=== PATIENT | female | born 1960 | race African-American/Black ===

== ENCOUNTER 2017-03-11 03:36 | Emergency (ER) | payer SELFPAY ==
[~2017-03-11] VITALS: Ht 185.4 cm; Wt 72.2 kg
[~2017-03-11 03:36] MED LIST: ACCURETI1 PO; ALENDRONATE70 MG OR; AMLODIPINE BESYL5 MG PO; AMOXICILLIN500 MG OR; ASACOL400 MG OR; ASACOL400 MG PO; ASPIRIN325 MG PO; BENAZEPRIL10 MG OR; CIPRO500 MG PO; CLARITIN10 M1 OR; COZAAR25 MG PO; CYMBALTA30 MG PO; CYMBALTA60 MG PO; DARVOCET N-100100 - OR; DARVOCET-N 100100 MG OR; DEPO-MEDROL80 MG/ML IM; DILAUDID2 MG PO; DIPENTUM250 MG OR; FLEXERIL OR; FLEXERIL10 MG PO; FOSAMAX PLUS; HYDROCHLORO25 MG/TAB PO; IMDUR30 MG OR; LEVAQUIN750 MG PO; LIALDA1.2 GM PO; LIPITOR10 MG PO; LIPITOR20 MG PO; LIPITOR40 MG OR; LISINOPRIL20 M1 OR; LORTAB5 PO; METHOCARBAMOL500 MG PO; METO50TA52 PO; METOPROLOL50 MG OR; METRONIDAZOL0.75 % VA; METRONIDAZOLE500 MG PO; MOTRIN800 MG OR; NEXIUM40 M1 PO; PLAVIX75 MG OR; PLAVIX75 MG PO; PREDNISONE20 MG PO; PRILOSEC40 MG PO; PROCARDIA XL30 MG OR; PROCARDIA XL30 MG PO; PROVENTIL0.083 % IN; ROBAXIN-750750 MG PO; SIMVASTATIN20 MG OR; SINGULAIR PO; TORADOL PO; TRAMADL/APAP OR; TRAMADOL HCL50 MG OR; TYLENOL # 31 TA1 PO; ULTRAM50 M1 PO; ZITHROMAX250 MG PO; ZOLOFT25 MG PO
[2017-03-11] MEDS ORDERED: PERCOCET 5/325M1 TAB PO (05:30)
[2017-03-11 05:41] VITALS: BP 148/88
== END 2017-03-11 05:48 | disposition home or self-care (01) | DRG 156 ==
LOC: ED 03:36
DX: S02.2XXA Fracture of nasal bones, initial encounter for closed fracture (principal); I10 Essential (primary) hypertension; M81.0 Age-related osteoporosis without current pathological fracture; M06.9 Rheumatoid arthritis, unspecified; J44.9 Chronic obstructive pulmonary disease, unspecified; F32.9 Major depressive disorder, single episode, unspecified; F17.210 Nicotine dependence, cigarettes, uncomplicated; Y04.0XXA Assault by unarmed brawl or fight, initial encounter

== ENCOUNTER 2018-07-31 11:43 | Observation (INO) | payer SELFPAY ==
[2018-07-31] VITALS (16 sets, daily range): BP systolic 154–177; BP diastolic 93–123
[~2018-07-31] VITALS: Ht 188 cm; Wt 71.9 kg
[~2018-07-31 11:43] MED LIST changes: +PERCOCET 5/325M1 TAB PO
--- NOTE | 2018-07-31 11:45 | NUR ---
TO [facility] ROOM VIA W/C
--- NOTE | 2018-07-31 12:21 | NUR ---
PT WITH IV ESTABLISHED, BLOOD DRAWN, NO ACUTE DISTRESS NOTED.
[2018-07-31 12:31] LABS: HEMATOCRIT 39.3 % (37.0-47.0); IMMATURE GRANULOCYTES 0.3 % (0.0-5.0); MEAN CELL VOLUME 92.9 fL CALC (80.0-100.0); MEAN CORPUSCULAR HGB 30.7 pG CALC (26.0-32.0); MEAN CORPUSCULAR HGB CONC 33.1 g/L CALC (32.0-36.0); NEUT# 3.25 thou/uL (2.00-7.15); RED BLOOD COUNT 4.23 mill/uL (4.20-5.60); RED CELL DISTRI WIDTH 14.7 % (11.5-15.5)
[2018-07-31 12:37] LABS: ALBUMIN 3.5 g/dL (3.2-5.0); ALKALINE PHOSPHATASE 80 u/l (38-126); ANION GAP 13 (6-22 (CALC)); BILIRUBIN, TOTAL 0.6 mg/dL (0.0-1.4); BUN 23 mg/dL (7-17); BUN/CREATININE RATIO 22 (12-20 (CALC)); CARBON DIOXIDE 24 mmol/l (22-30); CHLORIDE 111 mmol/l (95-108); CREATININE 1.1 mg/dL (0.5-1.0); GFR 51 ML/MIN (>=60 (CALC)); GFR FOR AFR.AMER. > 60 ML/MIN (>=60 (CALC)); POTASSIUM 4.2 mmol/l (3.5-5.1); SODIUM 144 mmol/l (137-146); TOTAL PROTEIN 6.5 g/dL (6.3-8.2)
[2018-07-31 12:46] LABS: SGOT/AST 89 u/l (14-36)
[2018-07-31 13:10] LABS: URINE BILIRUBIN - DIPSTICK NEGATIVE (NEGATIVE); URINE BLOOD DIPSTICK NEGATIVE (NEGATIVE); URINE GLUCOSE - DIPSTICK NEGATIVE (NEGATIVE); URINE KETONE NEGATIVE (NEGATIVE); URINE NITRITE - DIPSTICK NEGATIVE (Negative); URINE PROTEIN - DIPSTICK NEGATIVE (NEG-TRACE); URINE SPECIFIC GRAVITY 1.015; URINE UROBILINOGEN - DIPSTICK 0.2 E.U./dL (0.2)
[2018-07-31 13:17] LABS: URINE COLOR STRAW; URINE LEUK ESTERASE MODERATE (NEGATIVE)
[2018-07-31 13:18] LABS: URINE BACTERIA FEW hpf; URINE EPITHELIAL CELLS MODERATE EPI/hpf (0-FEW)
--- NOTE | 2018-07-31 14:07 | NUR ---
PT NOW WITH NTG INFUSING PER ELEVATED BP AND ALSO ANEURYSM. PT PROVIDED UPDATE ON FINDINGS AND PLAN OF CARE TO ADMIT TO ICU.
[2018-07-31 14:36] LABS: COCAINE NEGATIVE (NEGATIVE)
[2018-07-31 14:37] LABS: BARBITURATES NEGATIVE (NEGATIVE); METHADONE NEGATIVE (NEGATIVE); OXCYCODONE NEGATIVE (NEGATIVE); TETRAHYDROCANNABIONOL NEGATIVE (NEGATIVE); TRICYLIC ANTIDEPRESSANTS NEGATIVE (NEGATIVE)
--- NOTE | 2018-07-31 15:42 | NUR ---
female pt received to ICU bed 3 via stretcher accompanied by Luis Miguel Ayala RN in stable condition; ambulatory to bed with steady gait; admission assessment completed at this time; pt alert and oriented; denies pain at present; no n/v noted; c/c of sob x1 week progressively becoming worse starting last night; resp even and unlabored; exertional sob noted; lungs clear; skin color wnl; ra; pt refusing o2; hr reg; strong pulses; no edema noted; sr on monitor; abd soft with bs present; no bm noted per comic writer; pt admits to voiding without pain or burning; no urine to inspect at this time; bsc; #20 in rh saline locked; #20 in lac patent with ntg gtt infusing at 5mcg/min; no redness or edema noted at site; plan of care/ntg gtt/diet explained; call light within reach; will continue to monitor
--- NOTE | 2018-07-31 15:45 | NUR ---
PT TAKEN TO ICU-3 WITHOUT INCIDENT, REPORT WAS TO MECCA BROWN.
--- NOTE | 2018-07-31 16:30 | NUR ---
apple and cranberry juice provided as per pt request; pt requesting turkey sandwishes for the night; kitchen notified
--- NOTE | 2018-07-31 17:41 | NUR ---
Dr Temple present at bedside to assess pt and discuss plan of care
--- NOTE | 2018-07-31 18:09 | NUR ---
awake; dinner tray provided; o2 per nc applied; bilat aristides hose placed; pt refusing valdes catheter; daughter present at bedside; st on monitor; call light within reach; will continue to monitor
--- NOTE | 2018-07-31 19:45 | NUR ---
PT RESTING IN BED WATCHING TV. PT IS ALERT AND ORIENTED X3. SHIFT ASSESSMENT COMPLETED AT THIS TIME. PLAN OF CARE REVIEWED WITH PATIENT AT THIS TIME. IV NITRO TITRATED PER TITRATION CHARTING. PM MEDS GIVEN PER AUG. CALL LIGHT IN REACH. WILL CONTINUE TO MONITOR.
--- NOTE | 2018-07-31 22:00 | NUR ---
DR IBRAHIM PHONED FOR CLARIFICATION OF DIGOXIN MED ORDER. ORDER RECEIVED AND SENT TO [facility]
[2018-08-01] VITALS (11 sets, daily range): BP systolic 108–169; BP diastolic 83–108
--- NOTE | 2018-08-01 00:30 | NUR ---
PT WITH COMPLAINTS OF SEVERE RODRIGUEZ. PT REMAINS HYPERTENSIVE WITH NITRO PASTE IN PLACE. DR IBRAHIM NOTIFIED. NEW ORDERS RECEIVED. MEDICATED PT PER AUG. OFFERRED ICE PACK FOR RODRIGUEZ. PT DECLINED. CALL LIGHT INR EACH. [facility] ONT[facility] TO JEFFRY
--- NOTE | 2018-08-01 02:46 | NUR ---
PT RESTING IN BED WITH EYES CLOSED AT THIS TIME. RESP ARE EVEN AND UNLABORED. NO DISTRESS NOTED. CALL LIGHT INR EACH. WILL CONTINUE TO MONITOR
--- NOTE | 2018-08-01 04:42 | NUR ---
WASTE/MATERIALS EXCHANGE SPECIALIST AT BEDSIDE TO DRAW AM LABS. RESP ARE EVEN AND UNLABORED. NO COMPLAINTS VOICED AT THIS TIME. CALL LIGHT IN REACH. WILL CONTINUE TO MONITOR.
--- NOTE | 2018-08-01 04:55 | NUR ---
SANDWICH PROVIDED PER PT REQUEST.
[2018-08-01 05:05] LABS: HEMATOCRIT 37.5 % (37.0-47.0); HEMOGLOBIN 12.4 g/dl (12.0-16.0); IMMATURE GRANULOCYTES 0.3 % (0.0-5.0); MEAN CELL VOLUME 92.8 fL CALC (80.0-100.0); MEAN CORPUSCULAR HGB 30.7 pG CALC (26.0-32.0); MEAN CORPUSCULAR HGB CONC 33.1 g/L CALC (32.0-36.0); NEUT# 3.86 thou/uL (2.00-7.15); RED BLOOD COUNT 4.04 mill/uL (4.20-5.60); RED CELL DISTRI WIDTH 14.6 % (11.5-15.5)
--- NOTE | 2018-08-01 05:09 | NUR ---
RT AT BEDSIDE COMPLETING AM CXR
[2018-08-01 05:35] LABS: ALBUMIN 2.9 g/dL (3.2-5.0); ALKALINE PHOSPHATASE 73 u/l (38-126); ANION GAP 10 (6-22 (CALC)); BILIRUBIN, TOTAL 0.7 mg/dL (0.0-1.4); BUN 16 mg/dL (7-17); BUN/CREATININE RATIO 17 (12-20 (CALC)); CALCULATED LDLCHOLESTEROL 49 mg/dL (62-129 (CALC)); CARBON DIOXIDE 26 mmol/l (22-30); CHLORIDE 108 mmol/l (95-108); GFR 57 ML/MIN (>=60 (CALC)); GFR FOR AFR.AMER. > 60 ML/MIN (>=60 (CALC)); HDL CHOLESTEROL 67 mg/dL (>=40); SGOT/AST 59 u/l (14-36); SODIUM 140 mmol/l (137-146); TOTAL CHOLESTEROL 131 mg/dl (0-199); TOTAL PROTEIN 5.4 g/dL (6.3-8.2); TOTAL TRIGLYCERIDES 76 mg/dl (30-149); VLDL CHOLESTROL 15 mg/dl (2-49 (CALC))
--- NOTE | 2018-08-01 06:23 | NUR ---
pt resting in bed with eyes closed. resp are even and unlabored. no distress noted. call light in reach. will continue to monitor.
--- NOTE | 2018-08-01 07:39 | NUR ---
PT REQUEST TO USE BATHROOM TOILET FOR BM. REPORTS LARGE BROWN FORMED STOOL. PT BRUSHING TEETH AT SINK. AMBULATES WITH STEADY GAIT. PT STATES SHE LIVES ALONE, DOES NOT USE O2 @HOME AND TAKES CARE OF HERSELF JUST FINE. SPEECH IS CLEAR. LUNG SOUNDS CLEAR, BREATHING EVEN/UNLABORED. ABD SOFT/NONTENDER, ACTIVE BS. BERNAL. STRONG PULSES x4. GOOD CAP REFILL. EYES PERRLA @4.
--- NOTE | 2018-08-01 08:05 | NUR ---
DR IBRAHIM @BEDSIDE WITH PT, ASSESSING & DISCUSSING POC. WILL DOWNGRADE PT TO MS. PT REQUEST SHOWER & DC NC.
--- NOTE | 2018-08-01 08:10 | NUR ---
DISCUSSED PTS ALLERGY TO LISINIPRIL. PT C/O COUGH WITH JENNIFER INHIBITORS. MD AWARE, HE WILL REEVALUE IF PT DEVELOPS S/S AGAIN.
--- NOTE | 2018-08-01 08:34 | NUR ---
PT TO 2V CHEST XR WITH AUX BY WC.
--- NOTE | 2018-08-01 09:39 | NUR ---
EDUCATED PT ON MEDICATIONS PASSED. PT STATES SHE ONLY HAS A REACTION TO "LISINOPRIL W/THE WATER PILL". PT ALSO STATES SHE "AINT GOING TO TAKE ALL THIS MEDICINE WHEN SHE GETS OUT OF HERE BC SHE GOT BILLS TO PAY".
--- NOTE | 2018-08-01 10:14 | NUR ---
PT UP TO BSC, UNASSISTED.
--- NOTE | 2018-08-01 12:15 | NUR ---
PT SITTING UP IN BED, EATING LUNCH. NO S/S OF DISTRESS AT THIS TIME. CALLBELL W/IN REACH. WILL CONTINUE TO MONITOR.
--- NOTE | 2018-08-01 14:52 | NUR ---
PT REQUESTED MORE FOOD. STATES SHES HUNGRY ALL THE TIME. EDUCATED PT & VISITOR ON LOW SODIUM DIET. SALAD ORDERED.
--- NOTE | 2018-08-01 15:10 | NUR ---
U/S @BEDSIDE FOR ECHO
--- NOTE | 2018-08-01 16:41 | NUR ---
ASSISTED DAUGHTER IN CONNECTING PTS CELLPHONE TO INTERNET. PT/FAMILY AWARE WE ARE WAITING ON ROOM ASSIGNMENT ON MSU. PT REQUEST A SHOWER.
--- NOTE | 2018-08-01 17:27 | NUR ---
pt given room assignment [id number], report called to lizy. pt states she will pack up her belongings herself. pt eating dinner, sitting on her bed. daughter still at bedside.
--- NOTE | 2018-08-01 17:40 | NUR ---
PT TRANSFERED TO [facility] BY WC WITH ALL HER BELONGINGS, IN STABLE CONDITION.
--- NOTE | 2018-08-01 17:47 | NUR ---
PT WAS TRANFER FROM ICU VIA WHEELCHAIR. RENTAL CLERK OBTAIN VS AND SET PT FOR A SHOWER. PT DENIES ANY OTHER NEEDS AT THIS TIME. CALL LIGHT IN REACH.
--- NOTE | 2018-08-01 19:30 | NUR ---
PATIENT RESTING IN BED AT THISD TIME-AWAKE ALERT AND ORIENTEDX3. WATCHING TV AT THIS TIME, NO COMPLAINTS. TELE MONITOR IN PLACE. IV SITE TO LEFT FOREARM-APPEARS HEALTHY. SAFETY PRECAUTIONS REINFORCED. CALL LIGHT IN REACH. WILL CONT TO MONITOR
[2018-08-02] VITALS (7 sets, daily range): BP systolic 118–138; BP diastolic 76–97
--- NOTE | 2018-08-02 02:02 | NUR ---
APPEARS SLEEPING POSITIONED ON HER LEFT SIDE. RESP ARE EVEN AND UNLABORED. CALL LIGHT IN REACH. WILL CONT TO MONITOR.
--- NOTE | 2018-08-02 04:46 | NUR ---
APPEARS SLEEPING AT THIS TIME WITH EYES CLOSED. RESP ARE EVEN AND UNLABORED. TELE MONITOR IN PLACE. CALL LIGHT IN REACH. WILL CONT TO MONITOR.
--- NOTE | 2018-08-02 05:33 | NUR ---
PATIENT RESTING IN BED AT THIS TIME-STATES THAT SHE HAD SOME SHARP PAINS LAST NIGHT AND THEN FELL BACK TO SLEEP. STATES THAT NOTHING WAS DONE. VS WERE TAKEN AND WERE WNL. STATES THAT SHE IS IN NO PAIN AT THIS TIME. ASSESSMENT IS UNCHANGED FROM LAST NIGHTS ASSESSMENT. RT CALLED FOR EKG TO BE DONE NOW. CALL LIGHT IN REACH. WILL CONT TO MONITOR.
[2018-08-02 05:35] LABS: HEMATOCRIT 40.6 % (37.0-47.0); HEMOGLOBIN 13.6 g/dl (12.0-16.0); IMMATURE GRANULOCYTES 0.2 % (0.0-5.0); MEAN CELL VOLUME 93.5 fL CALC (80.0-100.0); MEAN CORPUSCULAR HGB 31.3 pG CALC (26.0-32.0); MEAN CORPUSCULAR HGB CONC 33.5 g/L CALC (32.0-36.0); NEUT# 2.04 thou/uL (2.00-7.15); RED BLOOD COUNT 4.34 mill/uL (4.20-5.60); RED CELL DISTRI WIDTH 14.6 % (11.5-15.5)
[2018-08-02 05:44] LABS: ALBUMIN 2.9 g/dL (3.2-5.0); BILIRUBIN, TOTAL 0.4 mg/dL (0.0-1.4); CREATININE 1.2 mg/dL (0.5-1.0); POTASSIUM 4.2 mmol/l (3.5-5.1); TOTAL PROTEIN 5.5 g/dL (6.3-8.2)
[2018-08-02 05:53] LABS: ANION GAP 11 (6-22 (CALC)); BUN 20 mg/dL (7-17); BUN/CREATININE RATIO 18 (12-20 (CALC)); CARBON DIOXIDE 26 mmol/l (22-30); CHLORIDE 106 mmol/l (95-108); CREATININE 1.1 mg/dL (0.5-1.0); GFR 51 ML/MIN (>=60 (CALC)); GFR FOR AFR.AMER. > 60 ML/MIN (>=60 (CALC)); POTASSIUM 4.5 mmol/l (3.5-5.1); SODIUM 139 mmol/l (137-146)
--- NOTE | 2018-08-02 07:05 | NUR ---
REPORT RECEIVED FROM STEPHANIE LARA;PT RESTING IN SEMI FOWLERS POSITION TALKING ON THE PHONE;INTRODUCED SELF TO PT AND POC DISCUSSED;PT REPORTS THAT SHE HAD SOME CHEST PAIN LAST NIGHT BUT IS PAIN FREE AT THIS TIME;PT ALSO STATES "YOU BETTER GET SOME SANDWICHES FOR TONIGHT BECAUSE IM NOT LEAVING THIS PLACE";RESPIRATIONS EVEN AND UNLABORED ON RA;TELE MONITORING IN PLACE;ENCOURAGED TO CALL FOR ASSISTANCE IF NEEDED;CALL LIGHT IN REACH;WILL CONTINUE TO MONITOR
--- NOTE | 2018-08-02 08:15 | NUR ---
PT RESTING IN SEMI FOWLERS POSITION;VS OBTAINED AND ASSESSMENT COMPLETED;PT DENIES ANY CURRENT PAIN OR NEEDS HOWEVER SHE DOES STATES "I FEEL SHORT OF BREATH WHEN I EAT";O2 SATS @ 95% ON RA ENCOURAGED ELEVATION OF HOB;RESPIRATIONS APPEAR EVEN AND UNLABORED AT THIS TIME;ABDOMEN SOFT ON PALPATION AND ACTIVE IN ALL 4 QUADRANTS;STRONG PEDAL PULSES;SKIN INTACT;TELE MONITORING IN PLACE;#22G TO LEFT FOREARM FLUSHED AND PATENT,SITE APPEARS HEALTHY AND FREE FROM INFILTRATE OR EDEMA;PT DENIES ANY ADDITIONAL NEEDS AT THIS TIME AND IS INSTRUCTED TO CALL FOR ASSISTANCE IF NEEDED;CALL LIGHT IN REACH;WILL CONTINUE TO MONITOR
--- NOTE | 2018-08-02 08:30 | NUR ---
AT BEDSIDE DISCUSSING POC.
--- NOTE | 2018-08-02 12:00 | NUR ---
PT RESTING IN HIGH FOWLERS POSITION EATING LUNCH;REPSIRATIONS APPEAR EVEN AND UNLABORED ON RA;PT DENIES ANY CURRENT PAIN OR NEEDS;TELE MONITORING IN PLACE;ASSESSMENT REMAINS UNCHANGED AT THIS TIME;ENCOURAGED TO EXPRESS NEEDS OR CONCERNS;CALL LIGHT IN REACH;WILL CONTINUE TO MONITOR
--- NOTE | 2018-08-02 16:00 | NUR ---
PT RESTING IN SEMI FOWLERS POSITION WATCHING TV;RESPIRATIONS EVEN AND UNLABORED ON RA;PT DENIES ANY CURRENT PAIN OR NEEDS;ASSESSMENT REMAINS UNCHANGED;IV SITE TO [facility] PATENT;TELE MONITORING IN PLACE;CALL LIGHT IN REACH;WILL CONTINUE TO MONITOR
--- NOTE | 2018-08-02 21:27 | NUR ---
REPORT GIVEN BY FRANCHESKA AGUIAR. PATIENT AWAKE AND WATCHING TV. PATIENT STATES THAT SHE CAN'T BE DISCHARGED TOMORROW BEFORE 9:45 AM BECAUSE SHE IS GETTING A CALL FROM COURT TO THE ROOM. RESP EVEN AND UNLABORED. NO S/S OF DISTRESS NOTED. FALL PRECAUTIONS IN PLACE. PATIENT INFORMED TO CALL WITH ANY QUESTIONS OR CONCERNS.
--- NOTE | 2018-08-03 00:10 | NUR ---
PATIENT RESTING WITH EYES CLOSED. RESP EVEN AND UNLABORED. NO S/S OF DISTRESS NOTED.
--- NOTE | 2018-08-03 04:16 | NUR ---
PATIENT AWAKE IN BED WATCHING TV. RESP EVEN AND UNLABORED. NO S/S OF DISTRESS NOTED.
[2018-08-03 04:25] VITALS: BP 127/89
[2018-08-03 05:06] LABS: HEMATOCRIT 41.1 % (37.0-47.0); HEMOGLOBIN 13.7 g/dl (12.0-16.0); IMMATURE GRANULOCYTES 0.3 % (0.0-5.0); MEAN CELL VOLUME 94.1 fL CALC (80.0-100.0); MEAN CORPUSCULAR HGB 31.4 pG CALC (26.0-32.0); MEAN CORPUSCULAR HGB CONC 33.3 g/L CALC (32.0-36.0); NEUT# 2.17 thou/uL (2.00-7.15); RED BLOOD COUNT 4.37 mill/uL (4.20-5.60); RED CELL DISTRI WIDTH 14.6 % (11.5-15.5)
[2018-08-03 05:20] LABS: ANION GAP 13 (6-22 (CALC)); BUN 16 mg/dL (7-17); BUN/CREATININE RATIO 16 (12-20 (CALC)); CARBON DIOXIDE 27 mmol/l (22-30); CHLORIDE 103 mmol/l (95-108); GFR 57 ML/MIN (>=60 (CALC)); GFR FOR AFR.AMER. > 60 ML/MIN (>=60 (CALC)); POTASSIUM 3.9 mmol/l (3.5-5.1); SODIUM 139 mmol/l (137-146)
--- NOTE | 2018-08-03 06:37 | NUR ---
INFORMED OF PH 7.52. NO NEW ORDERS GIVEN AT THIS TIME.
[2018-08-03 07:51] VITALS: BP 118/77
--- NOTE | 2018-08-03 07:51 | NUR ---
PT RESTING IN BED WATCHING TV, NO SIGNS OF DISTRESS NOTED, RESP EVEN AND UNLABORED. PT ALERT AND ORIENTED X3, NO EDEMA. DISCUSSED POC, PT IN AGREEMENT. VITALS OBTAINED AT THIS TIME. ASSESSMENT COMPLETED. PT VOICES NO NEEDS OR COMPLAINTS AT THIS TIME. CALL LIGHT IN REACH,CONTINUE TO MONITOR.
[2018-08-03 15:38] VITALS: BP 133/93
[2018-08-03 19:15] VITALS: BP 132/81
--- NOTE | 2018-08-03 19:28 | NUR ---
REPORT GIVEN BY SHAD AGUIAR. PATIENT IS AWAKE IN BED WATCHING TV. RESP EVEN AND UNLAORED. NO S/S OF DISTRESS NOTED. FALL PRECAUTIONS IN PLACE. PLAN OF CARE DISCUSSED. PATIENT INFORM TO CALL WITH ANY QUESTIONS OR CONCERNS.
[2018-08-04 00:09] VITALS: BP 125/76
--- NOTE | 2018-08-04 00:15 | NUR ---
PATIENT AWAKE RESTING IN BED WATCHING TV. RESP EVEN AND UNLABORED NO S/S OF DISTRESS NOTED.
[2018-08-04 04:39] VITALS: BP 121/83
--- NOTE | 2018-08-04 04:50 | NUR ---
PATIENT RESTING WITH EYES CLOSED. RESP EVEN AND UNLABORED. NO S/S OF DISTRESS NOTED.
[2018-08-04 07:20] LABS: HEMATOCRIT 42.2 % (37.0-47.0); HEMOGLOBIN 13.6 g/dl (12.0-16.0); IMMATURE GRANULOCYTES 0.3 % (0.0-5.0); MEAN CORPUSCULAR HGB 30.6 pG CALC (26.0-32.0); MEAN CORPUSCULAR HGB CONC 32.2 g/L CALC (32.0-36.0); NEUT# 2.44 thou/uL (2.00-7.15); RED BLOOD COUNT 4.44 mill/uL (4.20-5.60); RED CELL DISTRI WIDTH 14.6 % (11.5-15.5)
[2018-08-04 07:39] LABS: ANION GAP 13 (6-22 (CALC)); BUN 21 mg/dL (7-17); BUN/CREATININE RATIO 20 (12-20 (CALC)); CARBON DIOXIDE 26 mmol/l (22-30); CHLORIDE 105 mmol/l (95-108); CREATININE 1.1 mg/dL (0.5-1.0); GFR 51 ML/MIN (>=60 (CALC)); GFR FOR AFR.AMER. > 60 ML/MIN (>=60 (CALC)); POTASSIUM 4.4 mmol/l (3.5-5.1); SODIUM 139 mmol/l (137-146)
[2018-08-04 08:27] VITALS: BP 136/95
--- NOTE | 2018-08-04 08:27 | NUR ---
PT RESTING IN BED EATING BREAKFAST, NO SIGNS OF DISTRESS NOTED. RESP EVEN AND UNLABORED. PT ALERT AND ORIENTED X3, DISCUSSED POC DISCHARGE PT STATES SHE IS READY TO GO HOME. ASSESSMENT COMPLETED, CALL LIGHT IN REACH,CONTINUE TO MONITOR.
[2018-08-04] MEDS ORDERED: LASIX 20 MG TAB20 MG PO (08:34)
[2018-08-04] MEDS ORDERED: METOPROL TAR25 MG PO (08:35)
[2018-08-04] MEDS ORDERED: POT CHLORIDE10 ME1 PO (08:35)
[2018-08-04] MEDS ORDERED: ALPRAZOLAM0.5 MG PO (08:36)
[2018-08-04] MEDS ORDERED: Levaquin PO ×2 (08:36→08:56)
[2018-08-04] MEDS ORDERED: CLONIDINE0.1 MG PO ×2 (08:37→08:56)
[2018-08-04] MEDS ORDERED: HYDRALAZINE25 MG PO (08:37)
--- NOTE | 2018-08-04 09:15 | NUR ---
DISCUSSED DISCHARGE INSTRUCTIONS, IV REMOVED, CATHETER INTACT. SIGNED DISCHARGE PAPER.
--- NOTE | 2018-08-04 09:30 | NUR ---
Discharge instructions given. Patient verbalizes understanding of same. Discharged in stable condition via Wheelchair to Home with . All belongings sent with pt.
== END 2018-08-04 09:20 | disposition home or self-care (01) | DRG 291 ==
LOC: ED 11:43 → ED-I 13:44 → ED 14:22 → ICU 14:23 → MS2 14:23 → ICU 14:23 → MS2 08-01 17:16
PROVIDERS: Family Medicine; ADMIT Internal Medicine Geriatric Medicine; ATTEND Internal Medicine Geriatric Medicine
DX: I11.0 Hypertensive heart disease with heart failure (principal); J18.9 Pneumonia, unspecified organism; J44.0 Chronic obstructive pulmonary disease with (acute) lower respiratory infection; I50.9 Heart failure, unspecified; I25.10 Atherosclerotic heart disease of native coronary artery without angina pectoris; I71.2 Thoracic aortic aneurysm, without rupture; M19.90 Unspecified osteoarthritis, unspecified site; F14.10 Cocaine abuse, uncomplicated; F32.9 Major depressive disorder, single episode, unspecified; F17.210 Nicotine dependence, cigarettes, uncomplicated
CPT/HCPCS: G0378; Q9967

== ENCOUNTER 2018-09-30 12:41 | Observation (INO) | payer SELFPAY ==
[~2018-09-30] VITALS: Ht 188 cm; Wt 72.3 kg
[~2018-09-30 12:41] MED LIST changes: +ALPRAZOLAM0.5 MG PO; +CLONIDINE0.1 MG PO; +HYDRALAZINE25 MG PO; +LASIX 20 MG TAB20 MG PO; +Levaquin PO; +METOPROL TAR25 MG PO; +POT CHLORIDE10 ME1 PO
[2018-09-30 13:21] LABS: HEMATOCRIT 44.9 % (37.0-47.0); HEMOGLOBIN 14.5 g/dl (12.0-16.0); IMMATURE GRANULOCYTES 0.2 % (0.0-5.0); MEAN CELL VOLUME 91.8 fL CALC (80.0-100.0); MEAN CORPUSCULAR HGB 29.7 pG CALC (26.0-32.0); MEAN CORPUSCULAR HGB CONC 32.3 g/L CALC (32.0-36.0); NEUT# 1.56 thou/uL (2.00-7.15); RED BLOOD COUNT 4.89 mill/uL (4.20-5.60); RED CELL DISTRI WIDTH 14.6 % (11.5-15.5)
[2018-09-30 13:33] LABS: ALKALINE PHOSPHATASE 53 u/l (38-126); AMYLASE 57 u/l (30-110); ANION GAP 13 (6-22 (CALC)); BILIRUBIN, TOTAL 0.7 mg/dL (0.0-1.4); BUN 19 mg/dL (7-17); BUN/CREATININE RATIO 19 (12-20 (CALC)); CARBON DIOXIDE 26 mmol/l (22-30); CHLORIDE 103 mmol/l (95-108); GFR 57 ML/MIN (>=60 (CALC)); GFR FOR AFR.AMER. > 60 ML/MIN (>=60 (CALC)); LIPASE 33 u/l (23-300); POTASSIUM 4.2 mmol/l (3.5-5.1); SGOT/AST 21 u/l (14-36); SODIUM 138 mmol/l (137-146)
[2018-09-30 13:36] LABS: ALBUMIN 4.1 g/dL (3.2-5.0); PROTHROMBIN TIME 10.1 SECONDS (9.0-12.5); TOTAL PROTEIN 7.3 g/dL (6.3-8.2)
[2018-09-30 13:46] LABS: MYOGLOBIN 31 ng/mL (0 - 62)
[2018-09-30] MEDS ORDERED: HYDRALAZINE25 MG PO (13:53)
[2018-09-30 15:20] LABS: URINE BILIRUBIN - DIPSTICK NEGATIVE (NEGATIVE); URINE BLOOD DIPSTICK TRACE-INTACT (NEGATIVE); URINE COLOR YELLOW; URINE GLUCOSE - DIPSTICK NEGATIVE (NEGATIVE); URINE KETONE TRACE mg/dL (NEGATIVE); URINE LEUK ESTERASE NEGATIVE (NEGATIVE); URINE NITRITE - DIPSTICK NEGATIVE (Negative); URINE PROTEIN - DIPSTICK NEGATIVE (NEG-TRACE); URINE SPECIFIC GRAVITY 1.025; URINE UROBILINOGEN - DIPSTICK 0.2 E.U./dL (0.2)
[2018-09-30 15:28] LABS: BARBITURATES NEGATIVE (NEGATIVE); COCAINE NEGATIVE (NEGATIVE); METHADONE NEGATIVE (NEGATIVE); OXCYCODONE NEGATIVE (NEGATIVE); TETRAHYDROCANNABIONOL NEGATIVE (NEGATIVE); TRICYLIC ANTIDEPRESSANTS NEGATIVE (NEGATIVE)
[2018-09-30 18:30] VITALS: BP 153/94
[2018-09-30 23:35] VITALS: BP 125/81
[2018-10-01] VITALS (8 sets, daily range): BP systolic 101–148; BP diastolic 65–107
[2018-10-01 04:45] LABS: HEMATOCRIT 43.1 % (37.0-47.0); IMMATURE GRANULOCYTES 0.7 % (0.0-5.0); MEAN CELL VOLUME 90.9 fL CALC (80.0-100.0); MEAN CORPUSCULAR HGB 29.5 pG CALC (26.0-32.0); MEAN CORPUSCULAR HGB CONC 32.5 g/L CALC (32.0-36.0); NEUT# 1.92 thou/uL (2.00-7.15); RED BLOOD COUNT 4.74 mill/uL (4.20-5.60); RED CELL DISTRI WIDTH 14.5 % (11.5-15.5)
[2018-10-01 05:20] LABS: ANION GAP 13 (6-22 (CALC)); BUN 23 mg/dL (7-17); BUN/CREATININE RATIO 23 (12-20 (CALC)); CARBON DIOXIDE 28 mmol/l (22-30); CHLORIDE 104 mmol/l (95-108); GFR 57 ML/MIN (>=60 (CALC)); GFR FOR AFR.AMER. > 60 ML/MIN (>=60 (CALC)); SODIUM 140 mmol/l (137-146)
[2018-10-02 04:00] VITALS: BP 126/81
[2018-10-02 07:55] VITALS: BP 136/99
[2018-10-02 13:23] VITALS: BP 112/75
[2018-10-02 14:29] VITALS: BP 120/76
[2018-10-02 15:20] VITALS: BP 127/87
[2018-10-02] MEDS ORDERED: LISINOPRIL10 MG PO (16:11)
[2018-10-02] MEDS ORDERED: METOPROL TAR25 MG PO (16:34)
[2018-10-02] MEDS ORDERED: LASIX 20 MG TAB20 MG PO (16:34)
[2018-10-02] MEDS ORDERED: CLONIDINE0.1 MG PO (16:34)
[2018-10-02] MEDS ORDERED: HYDRALAZINE25 MG PO (16:34)
[2018-10-02] MEDS ORDERED: POT CHLORIDE10 ME1 PO (16:34)
[2018-10-02 17:49] VITALS: BP 127/87
== END 2018-10-02 18:20 | disposition home or self-care (01) | DRG 293 ==
LOC: ED 12:41 → ED-I 15:41 → ED 15:54 → MS2 15:55
PROVIDERS: Emergency Medicine; Internal Medicine; ADMIT Internal Medicine Geriatric Medicine; ATTEND Internal Medicine Geriatric Medicine
DX: I11.0 Hypertensive heart disease with heart failure (principal); I50.9 Heart failure, unspecified; I42.9 Cardiomyopathy, unspecified; I25.10 Atherosclerotic heart disease of native coronary artery without angina pectoris; J44.9 Chronic obstructive pulmonary disease, unspecified; F17.210 Nicotine dependence, cigarettes, uncomplicated; T46.5X6A Underdosing of other antihypertensive drugs, initial encounter; Z91.120 Patient's intentional underdosing of medication regimen due to financial hardship
CPT/HCPCS: G0378

== ENCOUNTER 2019-03-12 10:56 | Observation (INO) | payer OTHER ==
[~2019-03-12] VITALS: Ht 188 cm; Wt 79.8 kg
[~2019-03-12 10:56] MED LIST changes: +LISINOPRIL10 MG PO
[2019-03-12 11:55] LABS: HEMATOCRIT 38.6 % (37.0-47.0); HEMOGLOBIN 12.9 g/dl (12.0-16.0); IMMATURE GRANULOCYTES 0.6 % (0.0-5.0); MEAN CELL VOLUME 93.2 fL CALC (80.0-100.0); MEAN CORPUSCULAR HGB 31.2 pG CALC (26.0-32.0); MEAN CORPUSCULAR HGB CONC 33.4 g/L CALC (32.0-36.0); NEUT# 4.73 thou/uL (2.00-7.15); RED BLOOD COUNT 4.14 mill/uL (4.20-5.60); RED CELL DISTRI WIDTH 15.8 % (11.5-15.5)
[2019-03-12 12:16] LABS: MAGNESIUM 1.9 mg/dL (1.6-2.3)
[2019-03-12 12:17] LABS: ALBUMIN 3.5 g/dL (3.2-5.0); ALKALINE PHOSPHATASE 47 u/l (38-126); ANION GAP 10 (6-22 (CALC)); BILIRUBIN, TOTAL 0.6 mg/dL (0.0-1.4); BUN 23 mg/dL (7-17); BUN/CREATININE RATIO 22 (12-20 (CALC)); CARBON DIOXIDE 31 mmol/l (22-30); CHLORIDE 104 mmol/l (95-108); CREATININE 1.1 mg/dL (0.5-1.0); GFR 51 ML/MIN (>=60 (CALC)); GFR FOR AFR.AMER. > 60 ML/MIN (>=60 (CALC)); SGOT/AST 24 u/l (14-36); SODIUM 141 mmol/l (137-146); TOTAL PROTEIN 6.4 g/dL (6.3-8.2)
[2019-03-12] MEDS ORDERED: TIZANIDINE2 MG PO (14:56)
[2019-03-12] MEDS ORDERED: ENTRESTO 49-511 TAB PO (14:57)
[2019-03-12] MEDS ORDERED: CHLORTHALID25 MG PO (14:58)
[2019-03-12] MEDS ORDERED: CARVEDILOL25 MG PO (15:00)
[2019-03-12 15:36] VITALS: BP 153/101
[2019-03-12 16:22] VITALS: BP 137/90
[2019-03-12 19:01] VITALS: BP 112/70
[2019-03-13 00:10] VITALS: BP 121/83
[2019-03-13 04:13] VITALS: BP 144/101
[2019-03-13 07:04] LABS: CREATININE 1.2 mg/dL (0.5-1.0); POTASSIUM 4.4 mmol/l (3.5-5.1)
[2019-03-13] MEDS ORDERED: ASPIRIN ADULT L81 M2 PO (08:18)
[2019-03-13 09:43] VITALS: BP 140/87
[2019-03-13 09:48] VITALS: BP 140/87
== END 2019-03-13 14:32 | disposition home or self-care (01) ==
LOC: ED 10:56 → ED-I 13:44 → ED 14:12 → MS2 14:13
PROVIDERS: Family Medicine; ADMIT Internal Medicine; ATTEND Internal Medicine
DX: R07.2 Precordial pain (principal); I13.0 Hypertensive heart and chronic kidney disease with heart failure and stage 1 through stage 4 chronic kidney disease, or unspecified chronic kidney disease; I50.9 Heart failure, unspecified; N18.9 Chronic kidney disease, unspecified; E78.5 Hyperlipidemia, unspecified; J44.9 Chronic obstructive pulmonary disease, unspecified; F32.9 Major depressive disorder, single episode, unspecified; M19.90 Unspecified osteoarthritis, unspecified site; F14.10 Cocaine abuse, uncomplicated; F17.200 Nicotine dependence, unspecified, uncomplicated; Z86.73 Personal history of transient ischemic attack (TIA), and cerebral infarction without residual deficits
CPT/HCPCS: G0378

== ENCOUNTER 2020-05-05 15:06 | Emergency (ER) | payer OTHER ==
[~2020-05-05] VITALS: Ht 188 cm; Wt 90.0 kg
[~2020-05-05 15:06] MED LIST changes: +ASPIRIN ADULT L81 M2 PO; +CALCIUM 502 PO; +CARVEDILOL25 MG PO; +CHLORTHALID25 MG PO; +DICLOFENAC SODIUM1 % TOP; +ENTRESTO 49-511 TAB PO; +LORATADINE10 M3 PO; +TIZANIDINE2 MG PO
[2020-05-05 17:39] VITALS: BP 159/88
== END 2020-05-05 17:47 | disposition home or self-care (01) ==
LOC: ED 15:06
DX: Z20.828 Contact with and (suspected) exposure to other viral communicable diseases (principal); I10 Essential (primary) hypertension; F32.9 Major depressive disorder, single episode, unspecified; E78.5 Hyperlipidemia, unspecified; F17.200 Nicotine dependence, unspecified, uncomplicated; Z86.73 Personal history of transient ischemic attack (TIA), and cerebral infarction without residual deficits

== ENCOUNTER 2020-06-30 09:50 | Day surgery (SDC) | payer OTHER ==
[~2020-06-30] VITALS: Ht 188 cm; Wt 86.2 kg
[2020-06-30 12:59] VITALS: BP 111/77
== END 2020-06-30 12:54 | disposition home or self-care (01) ==
LOC: ENDO 09:50
PROVIDERS: ATTEND Surgery
DX: K51.911 Ulcerative colitis, unspecified with rectal bleeding (principal); K57.31 Diverticulosis of large intestine without perforation or abscess with bleeding; K64.8 Other hemorrhoids; I10 Essential (primary) hypertension; E78.5 Hyperlipidemia, unspecified; F32.9 Major depressive disorder, single episode, unspecified; F17.210 Nicotine dependence, cigarettes, uncomplicated; Z86.73 Personal history of transient ischemic attack (TIA), and cerebral infarction without residual deficits; Z20.828 Contact with and (suspected) exposure to other viral communicable diseases

== ENCOUNTER 2020-10-11 14:40 | Emergency (ER) | payer OTHER ==
[~2020-10-11 14:40] MED LIST changes: -CHLORTHALID25 MG PO; +CHLORTHALIDONE25 MG PO
[2020-10-11] MEDS ORDERED: ASPIRIN 8181 MG PO (15:06)
[2020-10-11 16:24] LABS: HEMATOCRIT 43.1 % (37.0-47.0); HEMOGLOBIN 13.9 g/dl (12.0-16.0); IMMATURE GRANULOCYTES 0.4 % (0.0-5.0); MEAN CELL VOLUME 94.1 fL CALC (80.0-100.0); MEAN CORPUSCULAR HGB 30.3 pG CALC (26.0-32.0); MEAN CORPUSCULAR HGB CONC 32.3 g/dL CAL (32.0-36.0); NEUT# 2.65 thou/uL (2.00-7.15); RED BLOOD COUNT 4.58 mill/uL (4.20-5.60); RED CELL DISTRI WIDTH 14.5 % (11.5-15.5)
[2020-10-11 16:35] LABS: ANION GAP 12 (6-22 (CALC)); BUN 21 mg/dL (7-17); BUN/CREATININE RATIO 20 (12-20 (CALC)); CARBON DIOXIDE 30 mmol/l (22-30); CHLORIDE 99 mmol/l (95-108); GFR 57 ML/MIN (>=60 (CALC)); GFR FOR AFR.AMER. > 60 ML/MIN (>=60 (CALC)); POTASSIUM 4.3 mmol/l (3.5-5.1); SODIUM 137 mmol/l (137-146)
[2020-10-11 16:45] LABS: ACT PARTIAL THROMBO TIME 24.2 SECONDS (20.0-32.5); PROTHROMBIN TIME 9.8 SECONDS (9.0-12.5)
[2020-10-11 18:33] VITALS: BP 135/93
== END 2020-10-11 18:27 ==
LOC: ED 14:40
PROVIDERS: Family Medicine
DX: S81.812A Laceration without foreign body, left lower leg, initial encounter (principal); I10 Essential (primary) hypertension; Z86.73 Personal history of transient ischemic attack (TIA), and cerebral infarction without residual deficits; F32.9 Major depressive disorder, single episode, unspecified; E78.5 Hyperlipidemia, unspecified; F17.200 Nicotine dependence, unspecified, uncomplicated; W01.110A Fall on same level from slipping, tripping and stumbling with subsequent striking against sharp glass, initial encounter; Y92.009 Unspecified place in unspecified non-institutional (private) residence as the place of occurrence of the external cause

== ENCOUNTER 2021-11-29 13:29 | Emergency (ER) | payer OTHER ==
[2021-11-29] VITALS (13 sets, daily range): BP systolic 114–139; BP diastolic 78–108
[~2021-11-29] VITALS: Ht 188 cm; Wt 88.0 kg
[~2021-11-29 13:29] MED LIST changes: +ASPIRIN 8181 MG PO
[2021-11-29 14:18] LABS: HEMATOCRIT 45.1 % (37.0-47.0); HEMOGLOBIN 14.8 g/dl (12.0-16.0); IMMATURE GRANULOCYTES 0.3 % (0.0-5.0); MEAN CELL VOLUME 93.4 fL CALC (80.0-100.0); MEAN CORPUSCULAR HGB 30.6 pG CALC (26.0-32.0); MEAN CORPUSCULAR HGB CONC 32.8 g/dL CAL (32.0-36.0); NEUT# 3.29 thou/uL (2.00-7.15); RED BLOOD COUNT 4.83 mill/uL (4.20-5.60); RED CELL DISTRI WIDTH 14.5 % (11.5-15.5)
[2021-11-29] MEDS ORDERED: MONTELUKAST SOD10 MG PO (14:23)
[2021-11-29] MEDS ORDERED: PROTONIX20 M1 PO (14:24)
[2021-11-29] MEDS ORDERED: LOSARTAN POTASS50 MG PO (14:24)
[2021-11-29 14:34] LABS: ALBUMIN 4.2 g/dL (3.2-5.0); ALKALINE PHOSPHATASE 62 u/l (38-126); ANION GAP 14 (6-22 (CALC)); BILIRUBIN, TOTAL 0.5 mg/dL (0.0-1.4); BUN 25 mg/dL (7-17); BUN/CREATININE RATIO 25 (12-20 (CALC)); CARBON DIOXIDE 27 mmol/l (22-30); CHLORIDE 102 mmol/l (95-108); GFR FOR AFR.AMER. > 60 ML/MIN (>=60 (CALC)); GFR OTHER RACES 57 ML/MIN (>=60 (CALC)); POTASSIUM 3.8 mmol/l (3.5-5.1); SGOT/AST 34 u/l (14-36); SODIUM 140 mmol/l (137-146); TOTAL PROTEIN 7.5 g/dL (6.3-8.2)
[2021-11-29 15:09] LABS: URINE BILIRUBIN - DIPSTICK NEGATIVE (NEGATIVE); URINE BLOOD DIPSTICK TRACE-INTACT (NEGATIVE); URINE COLOR YELLOW; URINE GLUCOSE - DIPSTICK NEGATIVE (NEGATIVE); URINE KETONE TRACE mg/dL (NEGATIVE); URINE LEUK ESTERASE NEGATIVE (NEGATIVE); URINE NITRITE - DIPSTICK NEGATIVE (Negative); URINE PROTEIN - DIPSTICK NEGATIVE (NEG-TRACE)
== END 2021-11-29 16:51 | disposition home or self-care (01) ==
LOC: ED 13:29
PROVIDERS: Family Medicine
DX: R51.9 Headache, unspecified (principal); R42 Dizziness and giddiness; I10 Essential (primary) hypertension; K21.9 Gastro-esophageal reflux disease without esophagitis; F32.A Depression, unspecified; E78.5 Hyperlipidemia, unspecified; F17.200 Nicotine dependence, unspecified, uncomplicated; Z86.73 Personal history of transient ischemic attack (TIA), and cerebral infarction without residual deficits; Z20.822 Contact with and (suspected) exposure to COVID-19

== ENCOUNTER 2022-01-02 11:15 | Emergency (ER) | payer OTHER ==
[~2022-01-02] VITALS: Ht 188 cm; Wt 90.2 kg
[~2022-01-02 11:15] MED LIST changes: +LOSARTAN POTASS50 MG PO; +MONTELUKAST SOD10 MG PO; +PROTONIX20 M1 PO
[2022-01-02 11:45] VITALS: BP 119/80
[2022-01-02 12:00] VITALS: BP 114/84
[2022-01-02 12:30] VITALS: BP 112/81
[2022-01-02] MEDS ORDERED: NAPROXEN500 MG PO (12:46)
[2022-01-02 13:00] VITALS: BP 112/81
== END 2022-01-02 13:00 | disposition home or self-care (01) ==
LOC: ED 11:15
DX: S63.92XA Sprain of unspecified part of left wrist and hand, initial encounter (principal); I10 Essential (primary) hypertension; E78.5 Hyperlipidemia, unspecified; F17.200 Nicotine dependence, unspecified, uncomplicated; X50.0XXA Overexertion from strenuous movement or load, initial encounter; Z86.73 Personal history of transient ischemic attack (TIA), and cerebral infarction without residual deficits

== ENCOUNTER 2022-02-15 08:31 | Day surgery (SDC) | payer OTHER ==
[~2022-02-15] VITALS: Ht 188 cm; Wt 89.4 kg
[~2022-02-15 08:31] MED LIST changes: +CALCIUM 600+D3 PO; +CARAFATE1 GM PO; +FLONASE AL50 MCG/ACT; +HYDROCO/APAP1 TA9 PO; +LASIX20 MG PO; +NAPROXEN500 MG PO; +POTASSIUM CHLO10 ME1 PO; +[UNRECOGNIZED DRUG - OTHER] PO
[2022-02-15 11:17] VITALS: BP 127/93
[2022-02-19] MEDS ORDERED: PREVACID30 M1 PO (08:26)
[2022-02-19] MEDS ORDERED: CLARITHROMYCIN500 MG PO (08:27)
[2022-02-19] MEDS ORDERED: AMOXICILLIN500 M2 PO (08:28)
== END 2022-02-15 11:10 | disposition home or self-care (01) ==
LOC: ORM 08:31
PROVIDERS: ATTEND Surgery
DX: K29.80 Duodenitis without bleeding (principal); K29.70 Gastritis, unspecified, without bleeding; B96.81 Helicobacter pylori [H. pylori] as the cause of diseases classified elsewhere; K44.9 Diaphragmatic hernia without obstruction or gangrene; I10 Essential (primary) hypertension; Z87.891 Personal history of nicotine dependence

== ENCOUNTER 2023-01-07 09:17 | Emergency (ER) | payer OTHER ==
[2023-01-07] VITALS (8 sets, daily range): BP systolic 113–128; BP diastolic 83–92
[~2023-01-07] VITALS: Ht 188 cm; Wt 90.0 kg
[~2023-01-07 09:17] MED LIST changes: +AMOXICILLIN500 M2 PO; +CLARITHROMYCIN500 MG PO; +PREVACID30 M1 PO
[2023-01-07 10:26] LABS: BASO% 0.6 % (0-3); EOS% 4.3 % (0-8); HEMATOCRIT 37.5 % (37.0-47.0); IMMATURE GRANULOCYTES 0.3 % (0.0-5.0); LYMPH% 31.7 % (15-41); MEAN CELL VOLUME 93.3 fL CALC (80.0-100.0); MEAN CORPUSCULAR HGB 29.9 pG CALC (26.0-32.0); MONO% 10.6 % (2-13); NEUT# 3.57 thou/uL (2.00-7.15); NEUT% 52.5 % (42-76); RED BLOOD COUNT 4.02 mill/uL (4.20-5.60); RED CELL DISTRI WIDTH 14.4 % (11.5-15.5)
[2023-01-07 10:32] LABS: ALBUMIN 4.1 g/dL (3.2-5.0); ALKALINE PHOSPHATASE 54 u/l (38-126); ANION GAP 13 (6-22 (CALC)); BILIRUBIN, TOTAL 0.4 mg/dL (0.02-1.3); BUN 17 mg/dL (8-23); BUN/CREATININE RATIO 20 (12-20 (CALC)); CARBON DIOXIDE 28 mmol/l (22-30); CHLORIDE 101 mmol/l (95-108); CREATININE 0.9 mg/dL (0.5-1.0); GFR FOR AFR.AMER. > 60 ML/MIN (>=60 (CALC)); GFR OTHER RACES > 60 ML/MIN (>=60 (CALC)); POTASSIUM 3.1 mmol/l (3.5-5.1); SGOT/AST 29 u/l (9-36); SODIUM 140 mmol/l (137-146); TOTAL PROTEIN 7.6 g/dL (6.3-8.2)
[2023-01-07 11:23] LABS: TSH, 3RD GENERATION 1.16 uIU/mL (0.47 - 4.68)
== END 2023-01-07 13:38 | disposition home or self-care (01) ==
LOC: ED 09:17
PROVIDERS: Family Medicine
DX: J98.59 Other diseases of mediastinum, not elsewhere classified (principal); I10 Essential (primary) hypertension; F17.200 Nicotine dependence, unspecified, uncomplicated; F32.A Depression, unspecified; E78.5 Hyperlipidemia, unspecified; Z86.73 Personal history of transient ischemic attack (TIA), and cerebral infarction without residual deficits

== ENCOUNTER 2024-01-11 13:21 | Emergency (ER) | payer OTHER ==
[~2024-01-11] VITALS: Ht 188 cm; Wt 81.0 kg
[2024-01-11] VITALS (9 sets, daily range): BP systolic 103–126; BP diastolic 64–101
[2024-01-11] MEDS ORDERED: SODIUM CHLORIDE 0.9% 1,000 ML IV ONE (13:30)
[2024-01-11 13:40] LABS: BASO% 0.2 % (0-3); EOS% 10.1 % (0-8); HEMOGLOBIN 12.9 g/dl (12.0-16.0); IMMATURE GRANULOCYTES 0.4 % (0.0-5.0); LYMPH% 22.3 % (15-41); MEAN CELL VOLUME 93.4 fL CALC (80.0-100.0); MEAN CORPUSCULAR HGB 29.4 pG CALC (26.0-32.0); MEAN CORPUSCULAR HGB CONC 31.5 g/dL CAL (32.0-36.0); MONO% 29.1 % (2-13); NEUT# 1.77 thou/uL (2.00-7.15); NEUT% 37.9 % (42-76); RED BLOOD COUNT 4.39 mill/uL (4.20-5.60)
[2024-01-11 14:02] LABS: POTASSIUM 3.2 mmol/l (3.5-5.1); TOTAL PROTEIN 7.7 g/dL (6.3-8.2)
[2024-01-11 14:03] LABS: BILIRUBIN, TOTAL 0.7 mg/dL (0.02-1.3)
[2024-01-11 15:13] LABS: URINE BLOOD DIPSTICK Trace-intact (NEGATIVE); URINE GLUCOSE - DIPSTICK Negative (NEGATIVE); URINE KETONE Trace mg/dL (NEGATIVE); URINE LEUK ESTERASE Negative (NEGATIVE); URINE NITRITE - DIPSTICK Negative (Negative); URINE PROTEIN - DIPSTICK Negative (NEG-TRACE); URINE UROBILINOGEN - DIPSTICK 0.2 E.U./dL (0.2)
[2024-01-11] MEDS ORDERED: methylPREDNISolone SODIUM SUCC 125 MG/2 ML SDV IV ONE (15:25)
[2024-01-11] MEDS ORDERED: IMODIUM A-D2 M3 PO (15:26)
[2024-01-11] MEDS ORDERED: PREDNISONE20 MG PO (15:26)
[2024-01-11 15:27] LABS: URINE COLOR Yellow
[2024-01-11] MEDS ORDERED: K-TAB20 MEQ PO (15:27)
== END 2024-01-11 16:11 | disposition home or self-care (01) ==
LOC: ED 13:21
PROVIDERS: Family Medicine
DX: K51.911 Ulcerative colitis, unspecified with rectal bleeding (principal); I10 Essential (primary) hypertension; F32.A Depression, unspecified; E78.5 Hyperlipidemia, unspecified; F17.200 Nicotine dependence, unspecified, uncomplicated
CPT/HCPCS: Q9967

== ENCOUNTER 2024-02-15 06:31 | Day surgery (SDC) | payer OTHER ==
[~2024-02-15] VITALS: Ht 188 cm; Wt 98.4 kg
[~2024-02-15 06:31] MED LIST changes: +DICLOFENAC SODIUM1 %; +IMODIUM A-D2 M3 PO; +K-TAB20 MEQ PO; +MULTIVITAMI9 PO; +POTASSIUM CHLO10 MEQ PO; +PROTONIX40 M2 PO; +STIOLTO RESPIMA1 AER; +[UNRECOGNIZED DRUG - OTHER]
[2024-02-15] MEDS ORDERED: FAMOTIDINE 10MG/ML 2ML SDV IV ONE (06:46)
[2024-02-15] MEDS ORDERED: LACTATED RINGER'S 1,000 ML IV ONE (06:46)
[2024-02-15] MEDS ORDERED: STERILE WATER FOR IRRIGATION 1,000 ML BTL IR ONE (07:15)
[2024-02-15 09:13] VITALS: BP 109/71
[2024-02-15] MEDS ORDERED: PROPOFOL 200 MG/20 ML VIAL IV ONE (15:29)
[2024-02-15] MEDS ORDERED: LIDOCAINE HCL 2% 2ML SDV IV ONE (15:29)
== END 2024-02-15 09:15 | disposition home or self-care (01) ==
LOC: ENDO 06:31 → ORM 10:45 → ENDO 10:45
PROVIDERS: ATTEND Surgery
DX: K50.111 Crohn's disease of large intestine with rectal bleeding (principal); K57.31 Diverticulosis of large intestine without perforation or abscess with bleeding; K64.8 Other hemorrhoids; C34.90 Malignant neoplasm of unspecified part of unspecified bronchus or lung; Z79.60 Long term (current) use of unspecified immunomodulators and immunosuppressants

== ENCOUNTER 2024-03-02 11:15 | Emergency (ER) | payer OTHER ==
[~2024-03-02] VITALS: Ht 188 cm; Wt 97.0 kg
[2024-03-02] VITALS (16 sets, daily range): BP systolic 98–131; BP diastolic 62–94
[~2024-03-02 11:15] MED LIST changes: +AMOX/K CLAV875 M1 PO; +MEDDOSEPAK PO
[2024-03-02] MEDS ORDERED: SODIUM CHLORIDE 0.9% 1,000 ML IV ONE (12:05)
[2024-03-02 12:08] LABS: URINE BILIRUBIN - DIPSTICK Negative (NEGATIVE); URINE BLOOD DIPSTICK Negative (NEGATIVE); URINE GLUCOSE - DIPSTICK Negative (NEGATIVE); URINE KETONE Negative (NEGATIVE); URINE LEUK ESTERASE Negative (NEGATIVE); URINE NITRITE - DIPSTICK Negative (Negative); URINE PROTEIN - DIPSTICK Negative (NEG-TRACE); URINE UROBILINOGEN - DIPSTICK 0.2 E.U./dL (0.2)
[2024-03-02 12:13] LABS: URINE COLOR Yellow
[2024-03-02 12:28] LABS: BASO% 0.5 % (0-3); EOS% 8.5 % (0-8); HEMATOCRIT 37.4 % (37.0-47.0); IMMATURE GRANULOCYTES 0.3 % (0.0-5.0); LYMPH% 19.6 % (15-41); MEAN CELL VOLUME 92.3 fL CALC (80.0-100.0); MEAN CORPUSCULAR HGB 29.6 pG CALC (26.0-32.0); MEAN CORPUSCULAR HGB CONC 32.1 g/dL CAL (32.0-36.0); NEUT# 3.23 thou/uL (2.00-7.15); NEUT% 50.1 % (42-76); RED BLOOD COUNT 4.05 mill/uL (4.20-5.60); RED CELL DISTRI WIDTH 15.5 % (11.5-15.5)
[2024-03-02 12:44] LABS: ALBUMIN 3.9 g/dL (3.2-5.0); CREATININE 0.9 mg/dL (0.5-1.0); POTASSIUM 3.2 mmol/l (3.5-5.1); TOTAL PROTEIN 7.2 g/dL (6.3-8.2)
[2024-03-02 13:13] LABS: BILIRUBIN, TOTAL 0.4 mg/dL (0.02-1.3)
[2024-03-02] MEDS ORDERED: ONDANSETRON HCl 4 MG/2 ML SDV IV ONE (16:10)
[2024-03-02] MEDS ORDERED: MORPHINE SULFATE 4 MG/ML VIAL IV ONE (16:10)
[2024-03-02] MEDS ORDERED: HYDROcodone 5 MG/Acetaminophen 325 MG/COMBO PO ONE (16:20)
[2024-03-02] MEDS ORDERED: HYDROCORT AC30 MG RE (16:57)
== END 2024-03-02 17:27 | disposition home or self-care (01) ==
LOC: ED 11:15
PROVIDERS: Family Medicine
DX: K51.911 Ulcerative colitis, unspecified with rectal bleeding (principal); K64.8 Other hemorrhoids; I10 Essential (primary) hypertension; K21.9 Gastro-esophageal reflux disease without esophagitis; Z85.118 Personal history of other malignant neoplasm of bronchus and lung